=== PATIENT | male | born 1975 | race Caucasian/White ===

== ENCOUNTER 2023-12-09 05:36 | Emergency (ER) | payer BC ==
[2023-12-09] MEDS: Acetaminophen/oxyCODONE 325-5 MG Tab PO STA (06:12)
[2023-12-09] MEDS: Cyclobenzaprine 10 MG Tab PO ONE (06:13)
[2023-12-09] MEDS: Ketorolac 30 MG/ML SDV IM ONE (06:13)
== END 2023-12-09 07:08 | disposition home or self-care (01) ==
LOC: FB.ED 05:36
DX: M54.16 Radiculopathy, lumbar region (principal); M54.40 Lumbago with sciatica, unspecified side; F17.210 Nicotine dependence, cigarettes, uncomplicated; Z86.16 Personal history of COVID-19
CPT/HCPCS: 96372; 99283; A9270; J1885